=== PATIENT | male | born 1965 | race Caucasian/White ===

== ENCOUNTER 2016-09-28 13:41 | Emergency (ER) | payer OTHER ==
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
== END 2016-09-28 14:42 | disposition home or self-care (01) ==
LOC: ER 13:41
DX: S16.1XXA Strain of muscle, fascia and tendon at neck level, initial encounter (principal); X58.XXXA Exposure to other specified factors, initial encounter; Y92.009 Unspecified place in unspecified non-institutional (private) residence as the place of occurrence of the external cause
CPT/HCPCS: 99282

== ENCOUNTER 2016-10-03 17:21 | Observation (INO) | payer OTHER ==
[2016-10-03] MEDS ORDERED: 0.9 % SODIUM CHLORIDE 1000ML 1,000 ML IV ONE (17:33)
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
[2016-10-03 17:48] LABS: BASO % 0.9 % (0-6); EOS % 0.7 % (0-6); GRAN % 72.1 % (47-80); HEMATOCRIT 48.5 % (42.0-52.0); HEMOGLOBIN 17.5 gm/dl (14.0-18.0); LYMPH % 15.1 % (16-45); MEAN CELL VOLUME 91.2 fl (81-97); MEAN CORPUSCULAR HEMOGLOBIN 32.9 pg (27-33); MEAN CORPUSCULAR HGB CONC 36.1 g/dl (32-36); MEAN PLATELET VOLUME 9.4 fl (7.4-10.4); MONO % 11.2 % (0-9); PLATELET COUNT 182 K/uL (130-400); RED BLOOD COUNT 5.32 M/uL (4.40-5.70); RED CELL DISTRIBUTION WIDTH 14.7 % (11.5-14.5); WHITE BLOOD COUNT W/O DIFF 13.6 K/uL (4.2-12.2)
[2016-10-03] MEDS ORDERED: ONDANSETRON HCL IV 4 MG/2 ML VIAL IVP ONE (17:53)
[2016-10-03 18:01] LABS: ALB/GLOB RATIO 1.7 (1.1-1.8); ALBUMIN 4.9 gm/dL (3.5-5.0); ALKALINE PHOSPHATASE 99 U/L (38-126); ALT/SGPT 382 U/L (21-72); ANION GAP 18.4 (7-16); AST/SGOT 469 U/L (17-59); BILIRUBIN,TOTAL 1.18 mg/dL (0.2-1.3); BLOOD UREA NITROGEN 6 mg/dL (9-20); CARBON DIOXIDE 21.6 mmol/L (22-30); CREATININE 0.6 mg/dL (0.66-1.25); EST GLOMERULAR FILTRATION RATE > 60 ml/min; GLUCOSE,RANDOM 109 mg/dL (70-110); LIPASE 111 U/L (23-300); TOTAL PROTEIN 7.8 gm/dL (6.3-8.2)
[2016-10-03 18:09] LABS: ALCOHOL 0.308 g/dL (0-0.010)
[2016-10-03 18:12] LABS: TROPONIN I < 0.012 ng/mL (0.00-0.034)
[2016-10-03 18:33] LABS: URINE APPEARANCE CLEAR; URINE BILIRUBIN NEGATIVE (NEGATIVE); URINE BLOOD MODERATE (NEGATIVE); URINE COLOR YELLOW; URINE GLUCOSE (UA) NEGATIVE (NEGATIVE); URINE KETONE NEGATIVE (NEGATIVE); URINE LEUKOCYTE ESTERASE NEGATIVE (NEGATIVE); URINE NITRITE NEGATIVE (NEGATIVE); URINE PROTEIN NEGATIVE (NEGATIVE); URINE UROBILINOGEN 0.2 E.U./dL (0.20 - 1.00)
[2016-10-03 18:41] LABS: URINE BACTERIA NONE SEEN; URINE EPITHELIAL CELLS 0 - 2 (FEW); URINE WBC 0 - 2 (0-2/hpf)
[2016-10-03] MEDS ORDERED: IBUPROFEN 400 MG TABLET PO ONE (18:59)
[2016-10-03] MEDS ORDERED: TRAZODONE 50 MG TABLET PO PRN (19:21)
[2016-10-03] MEDS: NAPROXEN 500 MG PO SCH ×2 (19:25→21:37)
[2016-10-03] MEDS: 0.9 % SODIUM CHLORIDE 1000ML 1,000 ML IV PRN (19:30)
[2016-10-03] MEDS: CYCLOBENZAPRINE 10MG TABLET PO SCH (21:31)
[2016-10-03] MEDS ORDERED: ATORVASTATIN 20 MG TABLET PO SCH (22:00)
[2016-10-04 07:10] LABS: ALB/GLOB RATIO 1.4 (1.1-1.8); ALBUMIN 3.6 gm/dL (3.5-5.0); ALKALINE PHOSPHATASE 81 U/L (38-126); ALT/SGPT 334 U/L (21-72); ANION GAP 11.5 (7-16); AST/SGOT 385 U/L (17-59); BILIRUBIN,TOTAL 1.43 mg/dL (0.2-1.3); BLOOD UREA NITROGEN 4 mg/dL (9-20); CARBON DIOXIDE 24.5 mmol/L (22-30); CREATININE 0.6 mg/dL (0.66-1.25); EST GLOMERULAR FILTRATION RATE > 60 ml/min; GLUCOSE,RANDOM 78 mg/dL (70-110); TOTAL PROTEIN 6.2 gm/dL (6.3-8.2)
--- NOTE | 2016-10-04 07:12 | RADIOLOGY REPORT ---
EXAM: CHEST, TWO VIEWS HISTORY: ACUTE GENERALIZED CHEST PAIN. TECHNIQUE: Two views of the chest were obtained. Comparison: Chest x-ray 02/23/16. FINDINGS: The lungs are clear. The cardiomediastinal silhouette, diaphragm, and osseous structures are unremarkable for age. IMPRESSION: NEGATIVE CHEST EXAMINATION. JOB NUMBER: [id number] MTDD
[2016-10-04] MEDS ORDERED: LORAZEPAM 2 MG/ML VIAL IV PRN (08:47)
[2016-10-04] MEDS ORDERED: HYDROCODONE/APAP 5/325MG TABLET PO PRN (08:47)
[2016-10-04] MEDS: 0.9 % SODIUM CHLORIDE 1000ML 1,000 ML IV PRN (09:25)
[2016-10-04] MEDS: CYCLOBENZAPRINE 10MG TABLET PO SCH (09:27)
[2016-10-04] MEDS ORDERED: NAPROXEN 250 MG TABLET PO SCH (10:00)
[2016-10-04] MEDS ORDERED: METOPROLOL TART 25 MG TABLET PO SCH (10:00)
[2016-10-04] MEDS ORDERED: CHLORDIAZEPOXIDE 25 MG CAPSULE PO SCH (10:00)
[2016-10-04] MEDS ORDERED: ASPIRIN 325 MG TAB ENTERIC-COATED PO SCH (10:00)
--- NOTE | 2016-10-04 12:39 | Discharge Note ---
Discharge Note - Date Date of Discharge Note: 10/04/16 Disposition: Home, Self-Care Condition: (1) Good Additional Instructions: follow up with dr. Wong in 6 days on monday. No alcohol follow up with AA meeting Use librium 25 mg three times a day for three days then two times a day for three days then daily for three days Prescriptions: Aspirin Enteric-Coated [Ecotrin (EC)] 81 mg PO DAILY #30 tabec Chlordiazepoxide HCl [Librium] 25 mg PO TID #18 capsule Metoprolol Tartrate [Lopressor] 25 mg PO DAILY #30 tab Thiamine HCl 100 gm MC DAILY #30 powder Forms: Patient Portal Access Activity at Discharge: Increase Activity as Tolerated
--- NOTE | 2016-10-04 12:53 | Discharge Note ---
Discharge Note - Date Date of Discharge Note: 10/04/16 Condition: (1) Good Additional Instructions: follow up with dr. Wong in 6 days on monday morning. No alcohol follow up with AA meeting Use librium 25 mg three times a day for three days then two times a day for three days then daily for three days Prescriptions: Aspirin Enteric-Coated [Ecotrin (EC)] 81 mg PO DAILY #30 tabec Chlordiazepoxide HCl [Librium] 25 mg PO TID #18 capsule Metoprolol Tartrate [Lopressor] 25 mg PO DAILY #30 tab Hydrocodone/Acetaminophen [[place] 5mg/325mg] 1 tab PO Q6H PRN #20 tab PRN Reason: Pain - General Thiamine HCl 100 gm MC DAILY #30 powder Referrals: González Wong D.O. [Primary Care Provider] - Forms: Patient Portal Access Activity at Discharge: Increase Activity as Tolerated
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
--- NOTE | 2016-10-04 15:52 | Discharge Summary ---
DATE OF DISCHARGE: 10/04/16 at about 1:00 p.m. DISCHARGE DIAGNOSES: 1. ACUTE INTOXICATION. 2. CHRONIC NECK PAIN. 3. CHEST WALL PAIN. 4. ALCOHOLISM. 5. WITHDRAWAL OF ALCOHOL. 6. HISTORY OF CORONARY ARTERY DISEASE. ATTENDING PHYSICIAN: GONZÁLEZ MORTON D.O. REASON FOR HOSPITALIZATION: INTOXICATION: This 51-year-old male presented to the Emergency Department intoxicated stating he drank about 30 beers in the last 24 hours. He was evaluated in the Emergency Department by Dr. Sargent. He was complaining of all sorts of pains; chest, abdominal, arm, legs, and headache. He was evaluated for coronary artery disease with an EKG, which showed no acute changes similar to the EKG of February of 2016. Cardiac enzymes were negative x2 and he was placed in the hospital for further evaluation. He was much better at the time I saw him. He has sobered up. He is eating and drinking fine. He has slight tremor. He has had no history of seizures with his alcohol withdrawal and he would like to go home. The patient states he is going to follow-up with AA. SIGNIFICANT FINDINGS: Cardiac enzymes x2 are negative. EKGs are the same and nonacute and similar to the February of 2016 EKG. THERAPY PROVIDED: IV fluids and Librium. HOSPITAL COURSE: Much improved. Some tremors but the Librium is taking care of that nicely. CONDITION AT DISCHARGE: Much improved. DISCHARGE INSTRUCTIONS: 1. Use Librium 25 mg three times a day for three days, then two times a day for three days, and then one time a day for three days. 2. Thiamine 100 mg once a day. 3. Aspirin 81 mg every day. 4. He has a multiple vitamin at home and I am recommending he take that also once a day. 5. He is taking Lopressor, the other name for it is Metoprolol Tartrate, 25 mg once a day. 6. He has a prescription of Flexeril, Naprosyn, and [place] at the drugstore. He can use those also for his chronic neck pain. 7. He is to follow-up with Dr. Morton in the office in six days, on Monday in the morning. 8. Activity as tolerated. 9. Multiple vitamins once a day. 10. Thiamine 100 mg once a day. 11. Librium as stated, titrating dose from 25 mg t.i.d. for threes, then b.i.d. for three days, and then once a day for three days. 12. AA meetings; he is going to set those up. 13. No alcohol. 14. Off work until 10/06/16. 15. Aspirin 81 mg every day. González Morton D.O. Date & Time JOB NUMBER: [id number] MTDD
== END 2016-10-04 14:30 | disposition home or self-care (01) ==
LOC: ER 17:21 → MEDSURG 19:17
PROVIDERS: ADMIT Emergency Medicine; ATTEND Emergency Medicine
DX: R07.89 Other chest pain (principal); F17.200 Nicotine dependence, unspecified, uncomplicated; M54.2 Cervicalgia; F10.129 Alcohol abuse with intoxication, unspecified; F10.239 Alcohol dependence with withdrawal, unspecified; F10.20 Alcohol dependence, uncomplicated; R94.31 Abnormal electrocardiogram [ECG] [EKG]; E87.1 Hypo-osmolality and hyponatremia
CPT/HCPCS: 99285 ×2; 96374; 83690; 85025; 84484 ×2; 80053 ×2; 81001; 71020; 94761; 93005 ×2; 93010 ×2; G0378 ×2; G0480; J2405; 80320; 99220; J7030

== ENCOUNTER 2018-03-14 14:11 | Emergency (ER) | payer OTHER ==
--- NOTE | 2018-03-14 14:44 | Emergency Department Record ---
History of Present Illness - General Chief Complaint: Detox Evaluation Stated Complaint: alcholism Time Seen by Provider: 03/14/18 14:44 Source: Patient, RN notes reviewed Mode of Arrival: Ambulatory Travel/Exposure to [facility] Within 21 Days of Symptoms: No - History of Present Illness Initial Comments: Patient states he is drinking 15 beers per day for 3 months and was sober for one year before that. Patient wants to get sober and he doesn't want to drink anymore and his last beer one PM today about 2 ours ago. patient has been through the treatment program in [place] about one year ago. -: Unknown Associated Psychiatric Symptoms: None History of same: Yes Quality: Getting worse Improves With: None Worsens With: None Associated Symptoms: Denies other symptoms Treatments Prior to Arrival: None - [place] Coma Scale Eye Response: (4) Open spontaneously Motor Response: (6) Obeys commands Verbal Response: (5) Oriented [place] Total: 15 - Related Data Previous Rx's Medication Instructions Recorded Aspirin Enteric-Coated [Ecotrin 81 mg PO DAILY #30 tabec 10/04/16 (EC)] Metoprolol Tartrate [Lopressor] 25 mg PO DAILY #30 tab 10/04/16 Thiamine HCl 100 gm MC DAILY #30 powder 10/04/16 Chlordiazepoxide HCl [Librium] 10 mg PO BID #10 cap 03/14/18 Allergies Allergy/AdvReac Type Severity Reaction Status Date / Time No Known Drug Allergies Allergy Verified 03/14/18 14:23 Past Medical History - SOCIAL HISTORY Smoking Status: Current every day smoker Alcohol Use: Heavy Alcohol Use Comment: 12 to 15 beers a day Drug Use: None - RESPIRATORY Hx Respiratory Disorders: Yes Hx Bronchitis: Yes - CARDIOVASCULAR Hx Cardio Disorders: Yes Hx Heart Attack: Yes (~2 yrs ago) Hx Hypertension: Yes Comment:: cardiac stent Apr 2013 - NEURO Hx Neuro Disorders: No - GI Hx GI Disorders: No - Hx Genitourinary Disorders: No - ENDOCRINE Hx Endocrine Disorders: No - MUSCULOSKELETAL Hx Musculoskeletal Disorders: Yes Hx Arthritis: Yes Hx Back Injury: Yes Comment:: chronic neck pain, several broken bones - PSYCH Hx Psych Problems: Yes Hx Depression: Yes - HEMATOLOGY/ONCOLOGY Hx Hematology/Oncology Disorders: No Family Medical History Any Significant Family History?: Yes Hx Alcohol Use: Father, Mother, Brother/Sister Hx Cancer: Mother *Cancer Comment: lymphoma Hx Heart Disease: Grandparents Hx Stroke: Father Physical Exam - General General Appearance: Alert, Oriented x3, Cooperative, No acute distress - Head Head exam: Normal inspection - Eye Eye exam: Normal appearance, PERRL Pupils: Normal accommodation - ENT ENT exam: Normal exam, Mucous membranes moist, Normal external ear exam, Normal orophraynx, TM's normal bilaterally Ear exam: Normal external inspection. negative: External canal tenderness Nasal Exam: Normal inspection. negative: Discharge, Sinus tenderness Mouth exam: Normal external inspection, Tongue normal Teeth exam: Normal inspection. negative: Dental caries Throat exam: Normal inspection. negative: Tonsillar erythema, Tonsillar exudate - Neck Neck exam: Normal inspection, Full ROM. negative: Tenderness - Respiratory Respiratory exam: Normal lung sounds bilaterally. negative: Respiratory distress - Cardiovascular Cardiovascular Exam: Regular rate, Normal rhythm, Normal heart sounds - GI/Abdominal GI/Abdominal exam: Soft, Normal bowel sounds. negative: Tenderness - Rectal Rectal exam: Deferred - exam: Deferred - Extremities Extremities exam: Normal inspection, Full ROM, Normal capillary refill. negative: Tenderness - Back Back exam: Reports: Normal inspection, Full ROM. Denies: Muscle spasm, Rash noted, Tenderness - Neurological Neurological exam: Alert, Normal gait, Oriented X3, Reflexes normal - Psychiatric Psychiatric exam: Normal affect, Normal mood - Skin Skin exam: Dry, Intact, Normal color, Warm Course Vital Signs 03/14/18 14:27 Temperature 98 F Pulse Rate 95 H Respiratory 16 Rate Blood Pressure 112/85 Pulse Ox 99 - Reevaluation(s) Reevaluation #1: [facility] for treatment of Alcohol abuse. Discussed with patient detoxing in the hospital vs at home and he wants to detox at home and risks discussed. his mother is in the room with him and will drive him. 03/14/18 16:57 Medical Decision Making - Lab Data Result diagrams: 03/14/18 15:22 03/14/18 15:22 Disposition Clinical Impression: Intoxication, AA (alcohol abuse) Disposition: Home, Self-Care Condition: (2) Stable Instructions: Abuse of Alcohol (ED), Alcohol Withdrawal (ED), Alcohol Intoxication (ED) Additional Instructions: follow up with dr. rushing tomorrow if any problems use librium twice a day for 2 days than once a day Prescriptions: Chlordiazepoxide HCl [Librium] 10 mg PO BID #10 cap Forms: Patient Portal Access Time of Disposition: 17:03 Quality - Quality Measures Quality Measures: N/A - Blood Pressure Screening Does Patient Have Any of the Following: No Blood Pressure Classification: Pre-Hypertensive BP Reading Systolic Measurement: 112 Diastolic Measurement: 85 Screening for High Blood Pressure: < Pre-Hypertensive BP, F/U Documented > [ G8950] Pre-Hypertensive Follow-up Interventions: Referral to alternative/primary care provider.
[2018-03-14] MEDS ORDERED: 0.9 % SODIUM CHLORIDE 1000ML 1,000 ML IV ONE (14:54)
[2018-03-14] MEDS ORDERED: THIAMINE MONONITRATE 100 MG TABLET PO SCH (15:15)
[2018-03-14 15:29] LABS: BASO % 0.7 % (0-6); EOS % 0.4 % (0-6); GRAN % 79.8 % (47-80); HEMATOCRIT 46.5 % (42.0-52.0); HEMOGLOBIN 17.1 gm/dl (14.0-18.0); LYMPH % 10.9 % (16-45); MEAN CELL VOLUME 93.9 fl (81-97); MEAN CORPUSCULAR HEMOGLOBIN 34.5 pg (27-33); MEAN CORPUSCULAR HGB CONC 36.8 g/dl (32-36); MEAN PLATELET VOLUME 8.7 fl (7.4-10.4); MONO % 8.2 % (0-9); PLATELET COUNT 340 K/uL (130-400); RED BLOOD COUNT 4.95 M/uL (4.40-5.70); RED CELL DISTRIBUTION WIDTH 15.6 % (11.5-14.5); WHITE BLOOD COUNT W/O DIFF 16.4 K/uL (4.2-12.2)
[2018-03-14 15:41] LABS: PROTHROMBIN TIME (PATIENT) 10.4 SECONDS (9.5-12.1)
[2018-03-14 15:44] LABS: BLOOD UREA NITROGEN 4 mg/dL (6-20); CREATININE 0.6 mg/dL (0.7-1.2); EST GLOMERULAR FILTRATION RATE > 60 mL/min; TOTAL PROTEIN 7.2 g/dL (6.6-8.7)
[2018-03-14 15:46] LABS: GLUCOSE,RANDOM 97 mg/dL (74-109)
[2018-03-14 15:49] LABS: ALBUMIN 4.6 g/dL (4.0-5.0); ALKALINE PHOSPHATASE 98 U/L (40-129); ALT/SGPT 50 U/L (<41); AST/SGOT 47 U/L (10.0-50.0)
[2018-03-14 15:53] LABS: ALCOHOL 0.205 g/dL (0-0.010); BILIRUBIN,DIRECT < 0.2 mg/dL (0-0.3)
== END 2018-03-14 17:16 | disposition home or self-care (01) ==
LOC: ER 14:11
DX: F10.220 Alcohol dependence with intoxication, uncomplicated (principal); Y90.7 Blood alcohol level of 200-239 mg/100 ml; I10 Essential (primary) hypertension; I25.2 Old myocardial infarction; F17.210 Nicotine dependence, cigarettes, uncomplicated
CPT/HCPCS: 99284 ×2; 85025; 85610; 80076; 80048; 93005; 93010; G0480; 80320

== ENCOUNTER 2019-02-27 01:38 | Emergency (ER) | payer OTHER ==
[2019-02-27] MEDS ORDERED: METHYLPREDNISOLONE PF 125MG/VIAL IM ONE (02:23)
[2019-02-27] MEDS ORDERED: TMP/SMZ 160MG/800MG TAB PO ONE (02:23)
[2019-02-27] MEDS ORDERED: DIPHENHYDRAMINE HCL 25 MG CAPSULE PO ONE (02:23)
--- NOTE | 2019-02-27 02:33 | Emergency Department Record ---
History of Present Illness - General Chief complaint: Rash Stated complaint: POISON LUIS FERNANDO BOTH LEGS Time Seen by Provider: 02/27/19 02:10 Source: Patient Mode of Arrival: Ambulatory Limitations: No limitations - History of Present Illness Initial comments: pt has a rash on legs after working in the [employer] a few days ago. it itches and he feels like his legs are swelling and the rash is spreading complaint: Rash Onset/Timin -: Days(s) Patient Tetanus UTD (within 5 yrs): No Location: LUE, Buttocks, Genitals, LLE, RLE Improves with: Medication Worsens with: None Context: None Associated symptoms: Other Treatments Prior to Arrival: OTC topical medication - Related Data Previous Rx's Medication Instructions Recorded Aspirin Enteric-Coated [Ecotrin 81 mg PO DAILY #30 tabec 10/04/16 (EC)] Metoprolol Tartrate [Lopressor] 25 mg PO DAILY #30 tab 10/04/16 Sulfamethoxazole/Trimethoprim 1 each PO BID #20 tablet 02/27/19 [Bactrim Ds Tablet] Allergies Allergy/AdvReac Type Severity Reaction Status Date / Time No Known Drug Allergies Allergy Verified 02/27/19 02:08 Travel Screening - Travel/Exposure Within Last 30 Days Have you traveled within the last 30 days?: No - Travel/Exposure Within Last Year Have you traveled outside the [place] in the last year?: No - Additonal Travel Details Have you been exposed to anyone with a communicable illness?: No - Travel Symptoms Symptom Screening: None Review of Systems Reviewed: No additional complaints except as noted below Constitutional: Reports: As per HPI. Denies: Chills, Fever, Malaise, Night sweats, Weakness, Weight change Eyes: Reports: As per HPI. Denies: Eye discharge, Eye pain, Photophobia, Vision change ENT: Reports: As per HPI. Denies: Congestion, Dental pain, Ear pain, Epistaxis, Hearing loss, Throat pain Respiratory: Reports: As per HPI. Denies: Cough, Dyspnea, Hemoptysis, Stridor, Wheezes Cardiovascular: Reports: As per HPI. Denies: Arrhythmia, Chest pain, Dyspnea on exertion, Edema, Murmurs, Orthopnea, Palpitations, Paroxysmal nocturnal dyspnea, Rheumatic Fever, Syncope Endocrine: Reports: As per HPI. Denies: Fatigue, Heat or cold intolerance, Polydipsia, Polyuria Gastrointestinal: Reports: As per HPI. Denies: Abdominal pain, Constipation, Diarrhea, Hematemesis, Hematochezia, Melena, Nausea, Vomiting Genitourinary: Reports: As per HPI. Denies: Dysuria, Frequency, Hematuria, Incontinence, Retention, Testicular pain, Testicular mass, Urgency Musculoskeletal: Reports: As per HPI. Denies: Arthralgia, Back pain, Gout, Joint swelling, Myalgia, Neck pain Skin: Reports: As per HPI. Denies: Bruising, Change in color, Change in hair/nails, Lesions, Pruritus, Rash Neurological: Reports: As per HPI. Denies: Abnormal gait, Confusion, Headache, Numbness, Paresthesias, Seizure, Tingling, Tremors, Vertigo, Weakness Psychiatric: Reports: As per HPI. Denies: Anxiety, Auditory hallucinations, Depression, Homicidal thoughts, Suicidal thoughts, Visual hallucinations Hematological/Lymphatic: Reports: As per HPI. Denies: Anemia, Blood Clots, Easy bleeding, Easy bruising, Swollen glands Past Medical History - SOCIAL HISTORY Smoking Status: Current every day smoker Alcohol Use: None Alcohol Use Comment: quit one month ago Drug Use: None - RESPIRATORY Hx Respiratory Disorders: Yes Hx Bronchitis: Yes - CARDIOVASCULAR Hx Cardio Disorders: Yes Hx Heart Attack: Yes (~2 yrs ago) Hx Hypertension: Yes Comment:: cardiac stent Apr 2013 - NEURO Hx Neuro Disorders: No - GI Hx GI Disorders: No - Hx Genitourinary Disorders: No - ENDOCRINE Hx Endocrine Disorders: No - MUSCULOSKELETAL Hx Musculoskeletal Disorders: Yes Hx Arthritis: Yes Hx Back Injury: Yes Comment:: chronic neck pain, several broken bones - PSYCH Hx Psych Problems: Yes Hx Depression: Yes - HEMATOLOGY/ONCOLOGY Hx Hematology/Oncology Disorders: No Family Medical History Any Significant Family History?: No Hx Alcohol Use: Father, Mother, Brother/Sister Hx Cancer: Mother *Cancer Comment: lymphoma Hx Heart Disease: Grandparents Hx Stroke: Father Physical Exam - General General Appearance: Alert, Oriented x3, Cooperative, No acute distress - Head Head exam: Normal inspection - Eye Eye exam: Normal appearance, PERRL, EOMI Pupils: Normal accommodation - ENT ENT exam: Normal exam, Mucous membranes moist, Normal external ear exam, Normal orophraynx Ear exam: Normal external inspection. negative: External canal tenderness Nasal Exam: Normal inspection. negative: Discharge, Sinus tenderness Mouth exam: Normal external inspection, Tongue normal Teeth exam: Normal inspection. negative: Dental caries Throat exam: Normal inspection. negative: Tonsillar erythema, Tonsillar exudate - Neck Neck exam: Normal inspection, Full ROM. negative: Tenderness - Respiratory Respiratory exam: Normal lung sounds bilaterally. negative: Respiratory distress - Cardiovascular Cardiovascular Exam: Regular rate, Normal rhythm, Normal heart sounds - GI/Abdominal GI/Abdominal exam: Soft, Normal bowel sounds. negative: Tenderness - Rectal Rectal exam: Deferred - exam: Deferred - Extremities Extremities exam: Normal inspection, Full ROM, Normal capillary refill. negative: Tenderness - Back Back exam: Reports: Normal inspection, Full ROM. Denies: Muscle spasm, Rash noted, Tenderness - Neurological Neurological exam: Alert, CN II-XII intact, Normal gait, Oriented X3 - Psychiatric Psychiatric exam: Normal affect, Normal mood - Skin Skin exam: Dry, Erythema, Intact, Normal color, Rash, Warm Type of lesion: Bite/sting Distribution of rash: Genitals, LUE, RLE, LLE Description of rash: Erythematous, Macular, Papular, Other (surrounding erythema of bites) Course Vital Signs 02/27/19 01:59 Temperature 97.8 F Pulse Rate 67 Respiratory 16 Rate Blood Pressure 160/97 Pulse Ox 100 Disposition Disposition: Discharge Clinical Impression: Insect bites of multiple sites, infected Disposition: Home, Self-Care Condition: (1) Good Instructions: Insect Bite or Sting (ED), Cellulitis (ED) Additional Instructions: follow up with family doctor. return sooner if worse. benadryl every 6 hours as needed Prescriptions: Sulfamethoxazole/Trimethoprim [Bactrim Ds Tablet] 1 each PO BID #20 tablet Quality - Quality Measures Quality Measures: N/A - Blood Pressure Screening Does Patient Have Any of the Following: Active Dx of HTN Blood Pressure Classification: Hypertensive Reading Systolic Measurement: 160 Diastolic Measurement: 97 Screening for High Blood Pressure: Patient Exclusion, Hx of HTN [G9744]
== END 2019-02-27 02:51 | disposition home or self-care (01) ==
LOC: ER 01:38
DX: S80.862A Insect bite (nonvenomous), left lower leg, initial encounter (principal); S80.861A Insect bite (nonvenomous), right lower leg, initial encounter; S30.860A Insect bite (nonvenomous) of lower back and pelvis, initial encounter; S70.362A Insect bite (nonvenomous), left thigh, initial encounter; S70.361A Insect bite (nonvenomous), right thigh, initial encounter; S30.865A Insect bite (nonvenomous) of unspecified external genital organs, male, initial encounter; W57.XXXA Bitten or stung by nonvenomous insect and other nonvenomous arthropods, initial encounter; Y92.828 Other wilderness area as the place of occurrence of the external cause; I10 Essential (primary) hypertension; I25.2 Old myocardial infarction; F17.210 Nicotine dependence, cigarettes, uncomplicated
CPT/HCPCS: 96372; 99282; 99283; J2930

== ENCOUNTER 2019-06-05 12:42 | Emergency (ER) | payer OTHER ==
[2019-06-05] MEDS ORDERED: KETOROLAC 30 MG/ML VIAL IM ONE (13:39)
[2019-06-05] MEDS ORDERED: ORPHENADRINE CITRATE 60MG/2ML VIAL IM ONE (13:39)
--- NOTE | 2019-06-05 13:55 | Emergency Department Record ---
History of Present Illness - General Chief Complaint: Neck Injury/Pain Stated Complaint: NECK PAIN Time Seen by Provider: 06/05/19 12:44 Source: Patient Mode of Arrival: Ambulatory - History of Present Illness Initial Comments: The patient is here due to worsening of his chronic neck pain today. The patient has a long hx of similar chronic pain since suffering a neck fx in the past. The pain has been worse today since he woke up. There is no radiation of the pain down the arms and no arm or leg numbness or weakness. The patient also denies any fever, trauma or IV drug use. MD Complaint: Neck pain Onset/Timin -: Hour(s) Place: Home Severity: Moderate Severity scale (1-10): 9 Quality: Sharp Consistency: Constant Improves With: Remaining still Worsens With: Movement of neck Context: Other Associated Symptoms: None Treatments Prior to Arrival: Ibuprofen Treatment Prior to Arrival Comment:: this AM, 3 hours ago - Related Data Previous Rx's Medication Instructions Recorded Aspirin Enteric-Coated [Ecotrin 81 mg PO DAILY #30 tabec 10/04/16 (EC)] Metoprolol Tartrate [Lopressor] 25 mg PO DAILY #30 tab 10/04/16 Cyclobenzaprine HCl [Flexeril] 10 mg PO TID PRN #20 tablet 06/05/19 Naproxen [Naprosyn] 500 mg PO BID #14 tablet. 06/05/19 Allergies Allergy/AdvReac Type Severity Reaction Status Date / Time No Known Drug Allergies Allergy Verified 06/05/19 13:22 Travel Screening - Travel/Exposure Within Last 30 Days Have you traveled within the last 30 days?: No - Travel/Exposure Within Last Year Have you traveled outside the [place] in the last year?: No - Additonal Travel Details Have you been exposed to anyone with a communicable illness?: No - Travel Symptoms Symptom Screening: None Review of Systems Constitutional: Denies: Chills, Fever Eyes: Denies: Eye discharge ENT: Denies: Congestion Respiratory: Denies: Cough, Dyspnea Past Medical History - SOCIAL HISTORY Smoking Status: Former smoker Alcohol Use: None Drug Use: None - RESPIRATORY Hx Respiratory Disorders: Yes Hx Bronchitis: Yes - CARDIOVASCULAR Hx Cardio Disorders: Yes Hx Heart Attack: Yes (~2 yrs ago) Hx Hypertension: Yes Comment:: cardiac stent Apr 2013 - NEURO Hx Neuro Disorders: No - GI Hx GI Disorders: No - Hx Genitourinary Disorders: No - ENDOCRINE Hx Endocrine Disorders: No - MUSCULOSKELETAL Hx Musculoskeletal Disorders: Yes Hx Arthritis: Yes Hx Back Injury: Yes Comment:: chronic neck pain, several broken bones - PSYCH Hx Psych Problems: Yes Hx Depression: Yes - HEMATOLOGY/ONCOLOGY Hx Hematology/Oncology Disorders: No Family Medical History Any Significant Family History?: Yes Hx Alcohol Use: Father, Mother, Brother/Sister Hx Cancer: Mother *Cancer Comment: lymphoma Hx Heart Disease: Grandparents Hx Stroke: Father Physical Exam - General General Appearance: Alert, Oriented x3, Cooperative, No acute distress - Eye Eye exam: Normal appearance, PERRL - Neck Neck exam: Normal inspection, Full ROM, Tenderness (There is mild diffuse posterior cervical tenderness.). negative: Lymphadenopathy, Meningismus - Respiratory Respiratory exam: Normal lung sounds bilaterally. negative: Respiratory distress - Cardiovascular Cardiovascular Exam: Regular rate, Normal rhythm, Normal heart sounds - GI/Abdominal GI/Abdominal exam: Soft, Normal bowel sounds. negative: Tenderness - Extremities Extremities exam: Normal inspection, Full ROM, Normal capillary refill. negative: Tenderness - Back Back exam: Reports: Normal inspection. Denies: Vertebral tenderness - Neurological Neurological exam: Alert, Normal gait, Oriented X3, Reflexes normal. negative: Abnormal gait, Altered, Motor sensory deficit Course Vital Signs 06/05/19 13:25 Temperature 98.8 F Pulse Rate 99 H Respiratory 20 Rate Blood Pressure 134/98 Pulse Ox 99 - Reevaluation(s) Reevaluation #1: The patient is doing a lot better at this time. The pain is much improved and he feels ready for home. He states he gets this pain every couple of months and nothing is new with this episode. He is instructed to see his PCP later this week and to return to the ER for any worsening symptoms. 06/05/19 14:26 Disposition Disposition: Discharge Clinical Impression: Chronic pain Qualifiers: Chronic pain type: other chronic pain Qualified Code(s): G89.29 - Other chronic pain Disposition: Home, Self-Care Condition: (2) Stable Instructions: Neck Pain (ED) Additional Instructions: Please take the naprosyn and flexeril for pain as directed. Please see your family doctor for recheck later this week. Return to the ER for any worsening pain, arm or leg numbness, weakness or any bowel or bladder issues. Prescriptions: Cyclobenzaprine HCl [Flexeril] 10 mg PO TID PRN #20 tablet PRN Reason: Pain Naproxen [Naprosyn] 500 mg PO BID #14 tablet.dr Forms: Patient Portal Access Time of Disposition: 14:26 Quality - Quality Measures Quality Measures: N/A - Blood Pressure Screening View Details: Yes Does Patient Have Any of the Following: No Blood Pressure Classification: Hypertensive Reading Systolic Measurement: 134 Diastolic Measurement: 98 Screening for High Blood Pressure: < First Hypertensive BP, F/U Documented > [G8950] First Hypertensive Follow-up Interventions: Referral to alternative/primary care provider.
== END 2019-06-05 14:33 | disposition home or self-care (01) ==
LOC: ER 12:42
DX: G89.29 Other chronic pain (principal); M54.2 Cervicalgia; I10 Essential (primary) hypertension; I25.2 Old myocardial infarction; Z87.891 Personal history of nicotine dependence
CPT/HCPCS: 99284 ×2; 96372; J1885; J2360

== ENCOUNTER 2019-08-27 18:32 | Emergency (ER) | payer OTHER ==
--- NOTE | 2019-08-27 18:47 | Emergency Department Record ---
History of Present Illness - General Chief Complaint: Neck Injury/Pain Stated Complaint: NECK PAIN Time Seen by Provider: 08/27/19 18:40 Source: Patient Mode of Arrival: Ambulatory Limitations: No limitations - History of Present Illness Initial Comments: 54 yo male presents to ED for evaluation of an exacerbation of his chronic neck pain symptoms. Patient denies recent injury or trauma, denies fevers, chills, or previous spinal surgery. Patient reports taking Ibuprofen earlier today with minimal improvement. Patient reports that his PCP has not prescribed anything for his chronic neck pain symptoms. Patient also denies numbness, tingling, or pain radiating down the upper extremities. MD Complaint: Neck pain Onset/Timin -: Days(s) Place: Home Severity: Moderate Severity scale (1-10): 7 Quality: Aching Consistency: Constant Improves With: None Worsens With: None Associated Symptoms: None Treatments Prior to Arrival: Ibuprofen - Related Data Previous Rx's Medication Instructions Recorded Prednisone [Prednisone 20Mg] 20 mg PO BID #15 tab 08/27/19 Allergies Allergy/AdvReac Type Severity Reaction Status Date / Time No Known Drug Allergies Allergy Verified 08/27/19 18:41 Travel Screening - Travel/Exposure Within Last 30 Days Have you traveled within the last 30 days?: No Review of Systems Constitutional: Denies: Chills, Fever, Malaise, Night sweats ENT: Denies: Congestion, Ear pain, Epistaxis Respiratory: Denies: Cough, Dyspnea Cardiovascular: Denies: Chest pain, Dyspnea on exertion Endocrine: Denies: Fatigue, Heat or cold intolerance Gastrointestinal: Denies: Abdominal pain, Nausea, Vomiting Genitourinary: Denies: Incontinence, Retention Musculoskeletal: Reports: Neck pain. Denies: Arthralgia, Back pain, Gout, Joint swelling Skin: Denies: Bruising, Change in color Neurological: Denies: Abnormal gait, Confusion, Headache, Seizure Psychiatric: Denies: Anxiety Hematological/Lymphatic: Denies: Anemia, Blood Clots Past Medical History - SOCIAL HISTORY Smoking Status: Former smoker Alcohol Use: None Drug Use: None - RESPIRATORY Hx Respiratory Disorders: Yes Hx Bronchitis: Yes - CARDIOVASCULAR Hx Cardio Disorders: Yes Hx Heart Attack: Yes Hx Hypertension: Yes Comment:: cardiac stent Apr 2013 - NEURO Hx Neuro Disorders: No - GI Hx GI Disorders: No - Hx Genitourinary Disorders: No - ENDOCRINE Hx Endocrine Disorders: No - MUSCULOSKELETAL Hx Musculoskeletal Disorders: Yes Hx Arthritis: Yes Hx Back Injury: Yes Comment:: chronic neck pain, several broken bones - PSYCH Hx Psych Problems: Yes Hx Depression: Yes - HEMATOLOGY/ONCOLOGY Hx Hematology/Oncology Disorders: No Family Medical History Any Significant Family History?: Yes Hx Alcohol Use: Father, Mother, Brother/Sister Hx Cancer: Mother *Cancer Comment: lymphoma Hx Heart Disease: Grandparents Hx Stroke: Father Physical Exam - General General Appearance: Alert, Oriented x3, Cooperative, Mild distress Limitations: No limitations - Head Head exam: Atraumatic, Normocephalic, Normal inspection Head exam detail: negative: Abrasion, Contusion, Ward's sign, General tenderness, Hematoma, Laceration - Eye Eye exam: Normal appearance. negative: Conjunctival injection, Periorbital swelling, Periorbital tenderness, Scleral icterus - ENT Ear exam: negative: Auricular hematoma, Auricular trauma Nasal Exam: negative: Active bleeding, Discharge, Dried blood, Foreign body Mouth exam: negative: Drooling, Laceration, Muffled voice, Tongue elevation - Neck Neck exam: Tenderness (Mild TTP along the midline, also along the paravertebral muscles of the cervical/upper thoracic spine on examination. FROM without significant pain symptoms.). negative: Meningismus - Respiratory Respiratory exam: Normal lung sounds bilaterally. negative: Rales, Respiratory distress, Rhonchi, Stridor - Cardiovascular Cardiovascular Exam: Regular rate, Normal rhythm, Normal heart sounds, Other (No longer tachycardic on my examination) - GI/Abdominal GI/Abdominal exam: Soft. negative: Rebound, Rigid, Tenderness - Rectal Rectal exam: Deferred - exam: Deferred - Extremities Extremities exam: Normal inspection. negative: Pedal edema, Tenderness - Back Back exam: Denies: CVA tenderness (R), CVA tenderness (L) - Neurological Neurological exam: Alert, Normal gait, Oriented X3 - Psychiatric Psychiatric exam: Normal affect, Normal mood - Skin Skin exam: Normal color. negative: Abrasion Type of lesion: negative: abrasion Course Vital Signs 08/27/19 18:38 Temperature 97.1 F L Pulse Rate 117 H Respiratory 18 Rate Blood Pressure 127/96 Pulse Ox 98 - Reevaluation(s) Reevaluation #1: 08/27/19 18:52 Patient was seen and examined Reports previous radiographs demonstrating degenerative changes Will treat with Prednisone as directed. Patient appears stable for discharge at this time. Disposition Disposition: Discharge Clinical Impression: Degenerative arthritis of cervical spine Qualifiers: Spinal osteoarthritis complication: unspecified spinal osteoarthritis Qualified Code(s): M47.812 - Spondylosis without myelopathy or radiculopathy, cervical region Disposition: Home, Self-Care Condition: (2) Stable Instructions: Degenerative Disc Disease (ED) Additional Instructions: Return to ED if your symptoms worsen or if you have any concerns. Prednisone as directed. Follow-up with your family doctor in 3-5 days as directed. Prescriptions: Prednisone [Prednisone 20Mg] 20 mg PO BID #15 tab Forms: Patient Portal Access Time of Disposition: 18:47 Quality - Quality Measures Quality Measures: N/A - Blood Pressure Screening Does Patient Have Any of the Following: No Blood Pressure Classification: Hypertensive Reading Systolic Measurement: 127 Diastolic Measurement: 96 Screening for High Blood Pressure: < First Hypertensive BP, F/U Documented > [G8950] First Hypertensive Follow-up Interventions: Referral to alternative/primary care provider.
[2019-08-27] MEDS: METHYLPREDNISOLONE PF 125MG/VIAL IM ONE (18:49)
== END 2019-08-27 19:02 | disposition home or self-care (01) ==
LOC: ER 18:32
DX: M47.812 Spondylosis without myelopathy or radiculopathy, cervical region (principal); Z87.891 Personal history of nicotine dependence; I10 Essential (primary) hypertension; I25.2 Old myocardial infarction
CPT/HCPCS: 96372; 99284; J2930

== ENCOUNTER 2019-08-28 11:55 | Emergency (ER) | payer OTHER ==
--- NOTE | 2019-08-28 12:15 | Emergency Department Record ---
History of Present Illness - General Chief Complaint: Neck Injury/Pain Stated Complaint: Neck pain/Shakey Time Seen by Provider: 08/28/19 12:01 Source: Patient Mode of Arrival: Ambulatory - History of Present Illness Initial Comments: patient states tremors and shakes started this am and he was in the ED yesterday and was having neck pain and was given a shot of steroids and he has not filled his prednisone script yet they are at [facility] but hasn't picked them up. No chest pain,no breathing problems. No aabdominal pain. Patient denies feeling tachycardia but his heart rate is 140-150. No alcohol or drugs or marijuana for 7 months. Patient also has a cough Onset/Timin -: Days(s) Place: Home Severity: Moderate Severity scale (1-10): 8 Treatments Prior to Arrival: None - Related Data Previous Rx's Medication Instructions Recorded Prednisone [Prednisone 20Mg] 20 mg PO BID #15 tab 08/27/19 Amlodipine Besylate 5 mg PO DAILY #30 tab 08/28/19 Azithromycin 250 mg PO DAILY #6 tablet 08/28/19 Allergies Allergy/AdvReac Type Severity Reaction Status Date / Time No Known Drug Allergies Allergy Verified 08/28/19 12:05 Travel Screening - Travel/Exposure Within Last 30 Days Have you traveled within the last 30 days?: No - Travel/Exposure Within Last Year Have you traveled outside the [place] in the last year?: No - Additonal Travel Details Have you been exposed to anyone with a communicable illness?: No - Travel Symptoms Symptom Screening: None Review of Systems Reviewed: No additional complaints except as noted below Constitutional: Reports: As per HPI. Denies: Chills, Fever, Malaise, Night sweats, Weakness, Weight change Eyes: Reports: As per HPI. Denies: Eye discharge, Eye pain, Photophobia, Vision change ENT: Reports: As per HPI. Denies: Congestion, Dental pain, Ear pain, Epistaxis, Hearing loss, Throat pain Respiratory: Reports: As per HPI. Denies: Cough, Dyspnea, Hemoptysis, Stridor, Wheezes Cardiovascular: Reports: As per HPI. Denies: Arrhythmia, Chest pain, Dyspnea on exertion, Edema, Murmurs, Orthopnea, Palpitations, Paroxysmal nocturnal dyspnea, Rheumatic Fever, Syncope Endocrine: Reports: As per HPI. Denies: Fatigue, Heat or cold intolerance, Polydipsia, Polyuria Gastrointestinal: Reports: As per HPI. Denies: Abdominal pain, Constipation, Diarrhea, Hematemesis, Hematochezia, Melena, Nausea, Vomiting Genitourinary: Reports: As per HPI. Denies: Dysuria, Frequency, Hematuria, Incontinence, Retention, Testicular pain, Testicular mass, Urgency Musculoskeletal: Reports: As per HPI. Denies: Arthralgia, Back pain, Gout, Joint swelling, Myalgia, Neck pain Skin: Reports: As per HPI. Denies: Bruising, Change in color, Change in hair/nails, Lesions, Pruritus, Rash Neurological: Reports: As per HPI, Tremors. Denies: Abnormal gait, Confusion, Headache, Numbness, Paresthesias, Seizure, Tingling, Vertigo, Weakness Psychiatric: Reports: As per HPI. Denies: Anxiety, Auditory hallucinations, Depression, Homicidal thoughts, Suicidal thoughts, Visual hallucinations Hematological/Lymphatic: Reports: As per HPI. Denies: Anemia, Blood Clots, Easy bleeding, Easy bruising, Swollen glands Past Medical History - SOCIAL HISTORY Smoking Status: Former smoker - RESPIRATORY Hx Respiratory Disorders: Yes Hx Bronchitis: Yes - CARDIOVASCULAR Hx Cardio Disorders: Yes Hx Heart Attack: Yes Hx Hypertension: Yes Comment:: cardiac stent Apr 2013 - NEURO Hx Neuro Disorders: No - GI Hx GI Disorders: No - Hx Genitourinary Disorders: No - ENDOCRINE Hx Endocrine Disorders: No - MUSCULOSKELETAL Hx Musculoskeletal Disorders: Yes Hx Arthritis: Yes Hx Back Injury: Yes Comment:: chronic neck pain, several broken bones - PSYCH Hx Psych Problems: Yes Hx Depression: Yes - HEMATOLOGY/ONCOLOGY Hx Hematology/Oncology Disorders: No Family Medical History Any Significant Family History?: No Hx Alcohol Use: Father, Mother, Brother/Sister Hx Cancer: Mother *Cancer Comment: lymphoma Hx Heart Disease: Grandparents Hx Stroke: Father Physical Exam - General General Appearance: Alert, Oriented x3, Cooperative, No acute distress - Head Head exam: Normal inspection - Eye Eye exam: Normal appearance, PERRL Pupils: Normal accommodation - ENT ENT exam: Normal exam, Mucous membranes moist, Normal external ear exam, Normal orophraynx, TM's normal bilaterally Ear exam: Normal external inspection. negative: External canal tenderness Nasal Exam: Normal inspection. negative: Discharge, Sinus tenderness Mouth exam: Normal external inspection, Tongue normal Teeth exam: Normal inspection. negative: Dental caries Throat exam: Normal inspection. negative: Tonsillar erythema, Tonsillar exudate - Neck Neck exam: Normal inspection, Full ROM. negative: Tenderness - Respiratory Respiratory exam: Normal lung sounds bilaterally. negative: Respiratory distress - Cardiovascular Cardiovascular Exam: Regular rate, Normal rhythm, Normal heart sounds - GI/Abdominal GI/Abdominal exam: Soft, Normal bowel sounds. negative: Tenderness - Rectal Rectal exam: Deferred - exam: Deferred - Extremities Extremities exam: Normal inspection, Full ROM, Normal capillary refill. negative: Tenderness - Back Back exam: Reports: Normal inspection, Full ROM. Denies: Muscle spasm, Rash noted, Tenderness - Neurological Neurological exam: Alert, Normal gait, Oriented X3, Reflexes normal, Other (tremor bilateral arms) - Psychiatric Psychiatric exam: Normal affect, Normal mood - Skin Skin exam: Dry, Intact, Normal color, Warm Course Vital Signs 08/28/19 11:56 Temperature 98.1 F Pulse Rate 140 H Respiratory 20 Rate Blood Pressure 190/128 Pulse Ox 98 - Reevaluation(s) Reevaluation #1: tremors are better adn he looks better and his wbc is 17,000 and he has a cough and was given steroid shot yesterday. overall patient feels better. 08/28/19 13:41 Reevaluation #2: start amlodipine 5 mg once aday and follow up with Dr Wong in one week 08/28/19 14:17 Medical Decision Making - Data Complexity MDM Data: Labs Ordered and/or Reviewed (wbc 17,900, UA RBC 7-10), X-Ray Ordered and/or Reviewed (chest xray negative), EKG Ordered and/or Reviewed (sinus tachycardia ,no acute changes) - Lab Data Result diagrams: 08/28/19 12:18 08/28/19 12:30 Disposition Clinical Impression: Bronchitis, Neck pain, COPD (chronic obstructive pulmonary disease) with acute bronchitis, Dehydration Chronic pain Qualifiers: Chronic pain type: chronic pain syndrome Qualified Code(s): G89.4 - Chronic pain syndrome Disposition: Home, Self-Care Condition: (1) Good Instructions: Acute Bronchitis (ED), COPD (Chronic Obstructive Pulmonary Disease) (ED) Additional Instructions: follow up with in 5 days continue prednisone meds at the drug store also ibuprofen for his neck pain Prescriptions: Amlodipine Besylate 5 mg PO DAILY #30 tab Azithromycin 250 mg PO DAILY #6 tablet Forms: Patient Portal Access Time of Disposition: 13:50 Quality - Quality Measures Quality Measures: N/A, Adult Bronchitis (18-64yr) - Adult Bronchitis Quality Measure: Measure #116: Avoidance of ABX w/Adult Bronchitis ICD10 Codes Entered: Yes Is patient being admitted: No Avoidance of ABX w/Bronchitis: Medical Reason for prescribing ABX [G9712] Medical Reason For Rx: Bacterial infection, Chronic airway obstruction - Blood Pressure Screening Does Patient Have Any of the Following: No Blood Pressure Classification: Hypertensive Reading Systolic Measurement: 190 Diastolic Measurement: 128 Screening for High Blood Pressure: < First Hypertensive BP, F/U Documented > [G8950] First Hypertensive Follow-up Interventions: Referral to alternative/primary care provider.
[2019-08-28] MEDS ORDERED: 0.9 % SODIUM CHLORIDE 1000ML 1,000 ML IV ONE (12:17)
[2019-08-28] MEDS ORDERED: 0.9 % SODIUM CHLORIDE 1000ML 1,000 ML IV SCH (12:30)
[2019-08-28 12:49] LABS: ABSOLUTE NEUTROPHIL COUNT 16.17; BASO % 0.1 % (0-6); HEMOGLOBIN 17.8 gm/dl (14.0-18.0); LYMPH % 3.6 % (16-45); MEAN CELL VOLUME 93.8 fl (81-97); MEAN CORPUSCULAR HEMOGLOBIN 32.7 pg (27-33); MEAN CORPUSCULAR HGB CONC 34.9 g/dl (32-36); MEAN PLATELET VOLUME 9.7 fl (7.4-10.4); MONO % 5.8 % (0-9); PLATELET COUNT 406 K/uL (130-400); RED BLOOD COUNT 5.44 M/uL (4.40-5.70); RED CELL DISTRIBUTION WIDTH 16.1 % (11.5-14.5); WHITE BLOOD COUNT W/O DIFF 17.9 K/uL (4.2-12.2)
[2019-08-28 12:53] LABS: BLOOD UREA NITROGEN 9 mg/dL (6-20); CREATININE 0.9 mg/dL (0.7-1.2); EST GLOMERULAR FILTRATION RATE > 60 mL/min
[2019-08-28 12:54] LABS: TOTAL PROTEIN 8.1 g/dL (6.6-8.7)
[2019-08-28 12:56] LABS: ALCOHOL < 0.010 g/dL (0-0.010); GLUCOSE,RANDOM 153 mg/dL (74-109)
[2019-08-28 12:58] LABS: ALT/SGPT 57 U/L (<41); AST/SGOT 32 U/L (10.0-50.0)
[2019-08-28 12:59] LABS: ACETAMINOPHEN < 5.0 ug/mL (10.0-30.0); ALB/GLOB RATIO 1.5 (1.1-1.8); ALBUMIN 4.8 g/dL (4.0-5.0); ALKALINE PHOSPHATASE 95 U/L (40-129); SALICYLATE < 0.3 mg/dL (2.8-20)
[2019-08-28 13:16] LABS: PARTIAL THROMBOPLASTIN TIME 25.7 SECONDS (24.5-39.1); PROTHROMBIN TIME (PATIENT) 10.1 SECONDS (9.5-12.1)
[2019-08-28] MEDS ORDERED: KETOROLAC 30 MG/ML VIAL IVP ONE (13:33)
--- NOTE | 2019-08-28 13:35 | RADIOLOGY REPORT ---
EXAMINATION: Two View Chest Radiographs EXAM DATE: 08/28/2019 1:04 PM TECHNIQUE: Frontal and lateral views INDICATION: cough COMPARISON: None ENCOUNTER: Not applicable FINDINGS: The heart, mediastinum, and pulmonary vasculature are within normal limits. The lung is hyperinflated . No lung consolidation or pleural effusions are present. No pneumothorax. Osseous structures and ov erlying soft tissue markings are normal. IMPRESSION: No acute cardiopulmonary disease is present. Dictated by: Yohannes Bustamante DO on 08/28/2019 1:31 PM. .
[2019-08-28 13:57] LABS: AMPHETAMINE SCREEN URINE NOT DETECTED; BARBITURATE SCREEN URINE NOT DETECTED; BENZODIAZEPINE SCREEN URINE NOT DETECTED; COCAINE SCREEN URINE NOT DETECTED; METHADONE SCREEN URINE NOT DETECTED; METHAMPHETAMINE SCREEN NOT DETECTED; OPIATE SCREEN URINE NOT DETECTED; OXYCODONE SCREEN URINE NOT DETECTED; PHENCYCLIDINE SCREEN URINE NOT DETECTED; PROPOXYPHENE SCREEN URINE NOT DETECTED; THC SCREEN URINE NOT DETECTED; TRICYCLIC ANTIDEPRESSANT SCRN NOT DETECTED
[2019-08-28 13:58] LABS: URINE APPEARANCE CLEAR; URINE BILIRUBIN NEGATIVE (NEGATIVE); URINE BLOOD MODERATE (NEGATIVE); URINE COLOR YELLOW; URINE GLUCOSE (UA) NEGATIVE (NEGATIVE); URINE KETONE TRACE (NEGATIVE); URINE LEUKOCYTE ESTERASE NEGATIVE (NEGATIVE); URINE NITRITE NEGATIVE (NEGATIVE); URINE PROTEIN NEGATIVE (NEGATIVE); URINE UROBILINOGEN 0.2 E.U./dL (0.20 - 1.00)
[2019-08-28 14:08] LABS: URINE EPITHELIAL CELLS 0 - 2 (FEW); URINE WBC 0 - 2 (0-2/hpf)
== END 2019-08-28 14:40 | disposition home or self-care (01) ==
LOC: ER 11:55
DX: J44.0 Chronic obstructive pulmonary disease with (acute) lower respiratory infection (principal); J20.9 Acute bronchitis, unspecified; E86.0 Dehydration; M54.2 Cervicalgia; I10 Essential (primary) hypertension; Z87.891 Personal history of nicotine dependence
CPT/HCPCS: 71046; 80048; 80053; 80305; 80320; 80329; 81001; 82140; 84484; 85027; 85610; 85730; 93005; 93010; 96361; 96374; 99284; J1885; J7030